=== PATIENT | male | born 1960 | race Caucasian/White ===

== ENCOUNTER 2022-03-18 16:26 | Emergency (ER) | payer OTHER ==
[~2022-03-18] VITALS: Ht 195.6 cm; Wt 95.5 kg
[2022-03-18 16:34] VITALS: TEMP 97.6
[2022-03-18 19:00] VITALS: BP 158/101; PULSE 64
== END 2022-03-18 19:00 | disposition home or self-care (01) ==
LOC: COL.ER 16:26
DX: S16.1XXA Strain of muscle, fascia and tendon at neck level, initial encounter (principal); S43.401A Unspecified sprain of right shoulder joint, initial encounter; S50.812A Abrasion of left forearm, initial encounter; Z28.310 Unvaccinated for COVID-19; V89.2XXA Person injured in unspecified motor-vehicle accident, traffic, initial encounter; Y92.410 Unspecified street and highway as the place of occurrence of the external cause